=== PATIENT | male | born 1955 | race African-American/Black ===

== ENCOUNTER 2021-07-09 04:05 | Emergency (ER) | payer OTHER ==
[2021-07-09 05:11] LABS: Urine Blood 3+ (Negative); Urine Glucose Negative (Negative); Urine Protein Negative (Negative); Urine Specific Gravity >=1.030 (1.005-1.030); Urine pH 5.5 (5.0-7.0)
[2021-07-09 05:43] LABS: Absolute Lymphocytes (CBC) 0.5 K/uL (0.7-4.9); Basophils % 0.5 % (0-1.3); Hematocrit 43.9 % (39.6-49.0); Lymphocytes % 3.5 % (15.3-44.8); MPV 7.9 fL (7.6-11.3); RBC Red Blood Cell Count 5.27 M/uL (4.33-5.43)
--- NOTE | 2021-07-09 05:44 | ER ---
Nurse's Notes [facility] Name: Eric Bazan Age: 66 yrs Sex: Male : 1955 Arrival Date: 07/09/2021 Time: 04:10 Bed 13 Private MD: Diagnosis: Retention of urine, unspecified-1 liter Presentation: 07/09 04:13 Initial Sepsis Screen: Does the patient meet any 2 criteria? No. Patient's initial wg sepsis screen is negative. Does the patient have a suspected source of infection? No. Patient's initial sepsis screen is negative. Risk Assessment: Do you want to hurt yourself or someone else? Patient reports no desire to harm self or others. Onset of symptoms was July 07, 2021. 04:13 Method Of Arrival: Ambulatory 04:13 Acuity: MARI 3 04:15 Coronavirus screen: Vaccine status: Patient reports receiving the 2nd dose of the covid lh3 vaccine. Ebola Screen: No symptoms or risks identified at this time. 05:52 Chief complaint:. em Triage Assessment: 04:16 General: Appears uncomfortable, well groomed, well developed, Behavior is calm, wg cooperative, appropriate for age. Pain: Complains of pain in Bladder area Pain currently is 8 out of 10 on a pain scale. Quality of pain is described as aching, tender. Historical: - Allergies: 04:16 No Known Allergies; wg - Home Meds: 04:16 Flomax oral [Active]; wg - PMHx: 04:16 enlarged prostate; wg - Immunization history:: Adult Immunizations up to date. - Social history:: Smoking status: Patient denies any tobacco usage or history of. Screenin:25 Abuse screen: Denies threats or abuse. Nutritional screening: No deficits noted. em Tuberculosis screening: No symptoms or risk factors identified. Fall Risk IV access (20 points). Assessment: 04:25 General: Appears uncomfortable. Pain: Complains of pain in back and suprapubic area. em : Reports inability to void, since 3 days ago, only been dribbling out urine pain in suprapubic area. 05:48 Reassessment: Patient and/or family updated on plan of care and expected duration. Pain em level reassessed. Patient is alert, oriented x 3, equal unlabored respirations, skin warm/dry/pink. patient states that he is feeling a lot more comfortable than when he came in. Patient denies pain at this time. Patient states feeling better. Patient states symptoms have improved. 05:50 Reassessment: No changes from previously documented assessment. leg bag changed out and em educated on how to empty bag was performed. Pt verbalized understanding of instructions. Vital Signs: 04:13 BP 167 / 87; Pulse 72; Resp 18; Temp 98.7; Pulse Ox 100% on R/A; Weight 83.91 kg; wg Height 5 ft. 10 in. (177.80 cm); Pain 8/10; 04:25 BP 177 / 89; Pulse 78; Resp 18; Pulse Ox 99% on R/A; em 05:50 BP 128 / 78; Pulse 56; Resp 18; Pulse Ox 99% on R/A; em 04:13 Body Mass Index 26.54 (83.91 kg, 177.80 cm) ED Course: 04:10 Patient arrived in ED. wm 04:16 Triage completed. wg 04:16 Arm band placed on right wrist. wg 04:25 Patient has correct armband on for positive identification. Placed in gown. Bed in low em position. Call light in reach. Side rails up X 1. Side rails up X2. 04:25 No provider procedures requiring assistance completed. Inserted saline lock: 22 gauge em in right antecubital area, using aseptic technique. 04:35 Gonsalez cath inserted, using sterile technique, 18 Fr., by mo, balloon inflated, to em gravity drainage, clamped. urine specimen collected. 05:11 Ishaan Hector MD is Attending Physician. yue 05:42 Fernando Ho MD is Referral Physician. yue 05:45 Josh Issa, FRANK is Primary Nurse. em 05:45 Chem 7 Sent. em 05:45 CBC with Manual Differential Sent. em 06:01 IV discontinued, bleeding controlled, No redness/swelling at site. Pressure dressing lh3 applied. Administered Medications: 05:45 Drug: Flomax (tamsulosin) 0.4 mg Route: PO; em 05:51 Follow up: Response: No adverse reaction em 05:45 Drug: Cipro (ciprofloxacin) 500 mg Route: PO; em 05:51 Follow up: Response: No adverse reaction em Outcome: 05:42 Discharge ordered by . yue 06:01 Discharged to home ambulatory. [facility] 06:01 Condition: good 06:01 Discharge instructions given to patient, Instructed on discharge instructions, follow up and referral plans. medication usage, Demonstrated understanding of instructions, follow-up care, medications, Prescriptions given X 2. 06:01 Patient left the ED. [facility] Signatures: Ishaan Hector MD MD cha Munoz, Edgar, RN RN Serene Oro Sayda Aceves RN RN [facility] Mario Urbina RN Corrections: (The following items were deleted from the chart) 51 04:13 Chief complaint: Patient states: Pt states he has been having difficulty voiding em for the past several days. States he is unable to void at all now. Pt states he has had urinary issues in the past and was prescribed Flomax, which he ran out of about 3 months ago. Pt c/o fullness in his bladder. Pt denies SOB, CP and Abd pain. 53 04:13 Coronavirus screen: Vaccine status: Patient reports receiving the 2nd dose of the em covid vaccine. Date January 03, 2021 At this time, the client does not indicate any symptoms associated with coronavirus-19. :53 04:13 Ebola Screen: Patient negative for fever greater than or equal to 101.5 degrees em Fahrenheit, and additional compatible Ebola Virus Disease symptoms Patient denies exposure to infectious person. Patient denies travel to an Ebola-affected area in the 21 days before illness onset. wg
--- NOTE | 2021-07-09 05:44 | EDPHYS ---
Physician Documentation [facility] Name: Eric Bazan Age: 66 yrs Sex: Male : 1955 Arrival Date: 07/09/2021 Time: 04:10 Bed 13 Private MD: ED Physician Ishaan Hector HPI: 07/09 05:39 This 66 yrs old Black Male presents to ER via Ambulatory with complaints of Urinary yue Problem. 05:39 The patient presents with urinary symptoms, retention. Onset: The symptoms/episode yue began/occurred this morning. Modifying factors: The symptoms are alleviated by nothing, the symptoms are aggravated by nothing. Associated signs and symptoms: Pertinent positives: abdominal pain. Severity of symptoms: At their worst the symptoms were moderate, in the emergency department the symptoms are unchanged. The patient has experienced similar episodes in the past, a few times. Historical: - Allergies: 04:16 No Known Allergies; wg - Home Meds: 04:16 Flomax oral [Active]; wg - PMHx: 04:16 enlarged prostate; wg - Immunization history:: Adult Immunizations up to date. - Social history:: Smoking status: Patient denies any tobacco usage or history of. ROS: 05:40 Constitutional: Negative for fever, chills, and weight loss, Eyes: Negative for injury, yue pain, redness, and discharge, ENT: Negative for injury, pain, and discharge, Neck: Negative for injury, pain, and swelling, Cardiovascular: Negative for chest pain, palpitations, and edema, Respiratory: Negative for shortness of breath, cough, wheezing, and pleuritic chest pain, Abdomen/GI: Negative for abdominal pain, nausea, vomiting, diarrhea, and constipation, Back: Negative for injury and pain, MS/Extremity: Negative for injury and deformity, Skin: Negative for injury, rash, and discoloration, Neuro: Negative for headache, weakness, numbness, tingling, and seizure, Psych: Negative for depression, anxiety, suicide ideation, homicidal ideation, and hallucinations, Allergy/Immunology: Negative for hives, rash, and allergies, Endocrine: Negative for neck swelling, polydipsia, polyuria, polyphagia, and marked weight changes, Hematologic/Lymphatic: Negative for swollen nodes, abnormal bleeding, and unusual bruising. 05:40 : Positive for flank pain, urinary frequency, small amounts, burning with urination. Exam: 05:40 Constitutional: This is a well developed, well nourished patient who is awake, alert, yue and in no acute distress. Head/Face: Normocephalic, atraumatic. Eyes: Pupils equal round and reactive to light, extra-ocular motions intact. Lids and lashes normal. Conjunctiva and sclera are non-icteric and not injected. Cornea within normal limits. Periorbital areas with no swelling, redness, or edema. ENT: Nares patent. No nasal discharge, no septal abnormalities noted. Tympanic membranes are normal and external auditory canals are clear. Oropharynx with no redness, swelling, or masses, exudates, or evidence of obstruction, uvula midline. Mucous membranes moist. Neck: Trachea midline, no thyromegaly or masses palpated, and no cervical lymphadenopathy. Supple, full range of motion without nuchal rigidity, or vertebral point tenderness. No Meningismus. Chest/axilla: Normal chest wall appearance and motion. Nontender with no deformity. No lesions are appreciated. Cardiovascular: Regular rate and rhythm with a normal S1 and S2. No gallops, murmurs, or rubs. Normal PMI, no JVD. No pulse deficits. Respiratory: Lungs have equal breath sounds bilaterally, clear to auscultation and percussion. No rales, rhonchi or wheezes noted. No increased work of breathing, no retractions or nasal flaring. Back: No spinal tenderness. No costovertebral tenderness. Full range of motion. Skin: Warm, dry with normal turgor. Normal color with no rashes, no lesions, and no evidence of cellulitis. MS/ Extremity: Pulses equal, no cyanosis. Neurovascular intact. Full, normal range of motion. Neuro: Awake and alert, GCS 15, oriented to person, place, time, and situation. Cranial nerves II-XII grossly intact. Motor strength 5/5 in all extremities. Sensory grossly intact. Cerebellar exam normal. Normal gait. Psych: Awake, alert, with orientation to person, place and time. Behavior, mood, and affect are within normal limits. 05:40 Abdomen/GI: Inspection: abdomen appears normal, Bowel sounds: normal, Palpation: mild abdominal tenderness, in the suprapubic area, Liver: no appreciated palpable abnormalities, Hernia: not appreciated. Vital Signs: 04:13 BP 167 / 87; Pulse 72; Resp 18; Temp 98.7; Pulse Ox 100% on R/A; Weight 83.91 kg; wg Height 5 ft. 10 in. (177.80 cm); Pain 8/10; 04:25 BP 177 / 89; Pulse 78; Resp 18; Pulse Ox 99% on R/A; em 05:50 BP 128 / 78; Pulse 56; Resp 18; Pulse Ox 99% on R/A; em 04:13 Body Mass Index 26.54 (83.91 kg, 177.80 cm) wg MDM: 05:11 Patient medically screened. yue 05:41 Differential diagnosis: UTI, urinary retention, prostatitis, urethritis. Data reviewed: yue vital signs, nurses notes, lab test result(s). Data interpreted: monitoring manager: not applicable for this patient encounter. rate is 72 beats/min, rhythm is regular, Pulse oximetry: on room air is 100 %. Counseling: I had a detailed discussion with the patient and/or guardian regarding: the historical points, exam findings, and any diagnostic results supporting the discharge/admit diagnosis, lab results, radiology results, the need for outpatient follow up, for definitive care, a family practitioner, a urologist. 07/09 04:46 Order name: CBC with Manual Differential em 07/09 04:46 Order name: Chem 7 em 07/09 04:46 Order name: CBC with Manual Differential EDMS 07/09 04:46 Order name: Basic Metabolic Panel EDMS 07/09 05:11 Order name: Urine Dipstick-Ancillary; Complete Time: 05:17 EDMS 07/09 04:18 Order name: Bladder Scanner; Complete Time: 05:05 wg 07/09 04:18 Order name: Urine Dipstick-Ancillary (obtain specimen); Complete Time: 05:46 wg 07/09 05:18 Order name: Leg Bag; Complete Time: 05:45 yue Administered Medications: 05:45 Drug: Flomax (tamsulosin) 0.4 mg Route: PO; em 05:51 Follow up: Response: No adverse reaction em 05:45 Drug: Cipro (ciprofloxacin) 500 mg Route: PO; em 05:51 Follow up: Response: No adverse reaction em Disposition Summary: 07/09/21 05:42 Discharge Ordered Location: Home yue Problem: new yue Symptoms: have improved yue Condition: Stable yue Diagnosis - Retention of urine, unspecified - 1 liter [facility] Followup: [facility] - With: Private Physician - When: 2 - 3 days - Reason: Recheck today's complaints, Continuance of care, Re-evaluation by your physician Followup: [facility] - With: Fernando Ho MD - When: 2 - 3 days - Reason: Recheck today's complaints, Re-evaluation by your physician Discharge Instructions: - Discharge Summary Sheet [facility] - Acute Urinary Retention, Male [facility] Forms: - Medication Reconciliation Form [facility] - Thank You Letter [facility] - Antibiotic Education [facility] - Prescription Opioid Use [facility] Prescriptions: - tamsulosin 0.4 mg Oral capsule - take 1 capsule by ORAL route once daily 1/2 hour following the same meal each [facility] day; 30 capsule; Refills: 0, Product Selection Permitted - Cipro 250 mg Oral Tablet - take 1 tablet by ORAL route every 12 hours; 14 tablet; Refills: 0, Product [facility] Selection Permitted Signatures: Dispatcher [employer] Ishaan Hensley MD MD cha Munoz, Edgar, RN RN Mario Woods RN
[2021-07-09] MEDS ORDERED: TAMSULOSIN 0.4 MG SR CAP ONE (05:54)
[2021-07-09] MEDS ORDERED: CIPROFLOXACIN HCL 500 MG TAB ONE (05:54)
[2021-07-09 05:56] LABS: Potassium 4.7 mmol/L (3.5-5.1)
[2021-07-09 06:19] VITALS: TEMP 98.7
[2021-07-09 06:21] VITALS: O2SAT 99
[2021-07-09 06:22] VITALS: BP 128/78
[2021-07-09 07:34] LABS: Blood Morphology Comment NOT SEEN (NOT SEEN); Platelet Estimate ADEQ
== END 2021-07-09 06:01 | disposition home or self-care (01) ==
LOC: ER 04:05
DX: R33.9 Retention of urine, unspecified (principal)
CPT/HCPCS: 36415; 51702; 80048; 81003; 85025; 99284